=== PATIENT | female | born 1965 | race Caucasian/White ===

== ENCOUNTER 2019-02-12 13:23 | Emergency (ER) | payer SELFPAY ==
[~2019-02-12] VITALS: Ht 162.6 cm; Wt 55.8 kg
[2019-02-12 14:25] VITALS: BP 126/87
[2019-02-12] MEDS ORDERED: NAPROXEN 500 MG TABLET PO STA (14:47)
[2019-02-12] MEDS ORDERED: HYDROcodone/APAP 5/325MG 1 TAB TABLET PO ONE (15:00)
[2019-02-12] MEDS ORDERED: CYCLOBENZAPRINE 10 MG TABLET. PO ONE (15:00)
--- NOTE | 2019-02-12 15:42 | RAD ---
LUMBAR SPINE 2-3V History: Fall recently, low back pain, history of lumbar fracture Comparison: None. Findings: 3 views of the lumbar spine are submitted. There has been vertebroplasty at L4. Lumbar vertebral body stature at other levels is maintained. There is grade 1 anterior spondylolisthesis at L4-5. There is fairly advanced L4-5 and to a somewhat lesser degree L5-S1 degenerative disc disease. There is posterior interspinous fusion device L4-5, no previous exam to evaluate for change in position. There is inferior vena cava filter present. There is moderate levoscoliosis centered near L3. Impression: 1. There has been vertebroplasty at L4. 2. There is posterior interspinous fusion device L4-5, otherwise difficult to characterize position by this exam. 3. There is degenerative disc disease greatest L4-5 and L5-S1. 4. There is lumbar levoscoliosis. There is grade 1 anterior spondylolisthesis L4-5. Electronically signed by: Cristobal Goyal MD (02/12/2019 3:39 PM) [id number]
--- NOTE | 2019-02-12 17:30 | RAD ---
Exam: CT lumbar spine without contrast. Pelvis without contrast INDICATION: Fall, back pain TECHNIQUE: Sequential axial images through the lumbar spine and pelvis obtained without IV contrast. Sagittal and coronal reformatted images were reconstructed from the axial data and reviewed. Comparisons: Lumbar spine radiographs FINDINGS: Lumbar spine: Fusion device at the spinous processes of L4 on L5. There is vertebroplasty changes at L4. Grade 1/2 anterolisthesis of L4 on L5. Mild compression deformity of the L4 vertebral body with anterior wedging and less than 25 percent height loss. Fracture through the lumbar spine is not identified. Mild broad-based disc bulge, ligament flavum thickening facet arthropathy at L3-L4. Without significant neural foraminal stenosis. Moderate to severe spinal canal stenosis at L4-L5 secondary to anterolisthesis. There is moderate right and mild left-sided neural foraminal stenosis at this level. Visualized paraspinal soft tissues are unremarkable. Pelvis: Visualized intrapelvic structures are unremarkable. No acute fractures are identified. Sacral iliac joints, pubic symphysis and hip joints are well-maintained. Bone mineralization is normal. IMPRESSION: 1. Grade 2 anterolisthesis of L4 on L5 with associated at least moderate spinal canal stenosis at that level, favored to be chronic. No acute displaced fracture through the lumbar spine is identified. 2. No acute pelvic fracture identified. Exposure: One or more of the following in the visualized dose reduction techniques were utilized for this examination: 1. Automated exposure control 2. Adjustment of the MA and/or KV according to patient size 3. Use of iterative of reconstructive technique Electronically signed by: Vipul Garibay MD (02/12/2019 5:27 PM) [facility]
[2019-02-12] MEDS ORDERED: CYCL10TA2 PO (17:47)
[2019-02-12] MEDS ORDERED: HYDR-3164 PO (17:47)
--- NOTE | 2019-02-12 17:48 | PHYS DOC ---
Past Medical History Past Medical History: Bipolar, Depression Past Surgical History: Hysterectomy, Tonsillectomy Additional Past Surgical Histo: WISDOM TEETH, SPINAL FUSION, NASAL SEPTUM, PE, DVT, R WRIST SX, TIBIA PLAT Alcohol Use: None Drug Use: Marijuana Adult General Chief Complaint Chief Complaint: MECHANICAL FALL HPI HPI Patient is a 53 year old female with history of lumbar laminectomy who presents to the ED today complaining of moderate low back pain and bilateral hip pain that began this afternoon after falling, patient states she slipped on mud and fell landing on her buttocks. Patient denies any loss of consciousness, denies hitting her head on the ground. She describes the pain as sharp and constant worse on weight bearing. Denies any pain radiating to bilateral lower extremities. Denies any loss of bowel/bladder function. Review of Systems Review of Systems Constitutional: Denies fever or chills [] GI: Denies abdominal pain, nausea, vomiting, bloody stools or diarrhea [] : Denies dysuria or hematuria [] Musculoskeletal: Reports low back pain Integument: Denies rash or skin lesions [] Neurologic: Denies headache, focal weakness or sensory changes [] All other systems were reviewed and found to be within normal limits, except as documented in this note. Current Medications Current Medications Current Medications Medications (Trade) Dose Ordered Sig/Parish Start Time Stop Time Status Last Admin Dose Admin Acetaminophen/ Hydrocodone Bitart (Lortab 5/325) 2 tab 1X ONCE 02/12/19 15:00 02/12/19 15:01 DC 02/12/19 15:03 2 TAB Cyclobenzaprine HCl (Flexeril) 10 mg 1X ONCE 02/12/19 15:00 02/12/19 15:01 DC 02/12/19 15:03 10 MG Naproxen (Naprosyn) 500 mg 1X STAT 02/12/19 14:47 02/12/19 14:51 DC 02/12/19 15:04 500 MG Allergies Allergies Allergies Coded Allergies Type Severity Reaction Last Updated Verified Tetracyclines Allergy Intermediate 02/12/19 Yes clarithromycin Allergy Intermediate 02/12/19 Yes codeine Allergy Intermediate 02/12/19 Yes morphine Allergy Intermediate 02/12/19 Yes Physical Exam Physical Exam Constitutional: Well developed, well nourished, no acute distress, non-toxic appearance. [] Abdomen: Bowel sounds normal, soft, no tenderness, no masses, no pulsatile masses. [] Skin: Warm, dry, no erythema, no rash. [] Back: Moderate tenderness on palpation of the midline lumbar spine as well as paraspinal muscle tenderness to bilateral lumbar spine, no CVA tenderness. Extremities: Tenderness to bilateral hips, no cyanosis, no clubbing, ROM intact, no edema. [] Neurologic: Alert and oriented X 3, normal motor function, normal sensory function, no focal deficits noted. [] Psychologic: Affect normal, judgement normal, mood normal. [] Current Patient Data Vital Signs Vital Signs Date Time Temp Pulse Resp B/P (MAP) Pulse Ox O2 Delivery O2 Flow Rate FiO2 02/12/19 15:03 98 02/12/19 14:25 98.0 87 18 126/87 (100) Room Air 98.0 EKG EKG [] Radiology/Procedures Radiology/Procedures []PROCEDURE: CT LOWER EXTREMITY WO BILAT Exam: CT lumbar spine without contrast. Pelvis without contrast INDICATION: Fall, back pain TECHNIQUE: Sequential axial images through the lumbar spine and pelvis obtained without IV contrast. Sagittal and coronal reformatted images were reconstructed from the axial data and reviewed. Comparisons: Lumbar spine radiographs FINDINGS: Lumbar spine: Fusion device at the spinous processes of L4 on L5. There is vertebroplasty changes at L4. Grade 1/2 anterolisthesis of L4 on L5. Mild compression deformity of the L4 vertebral body with anterior wedging and less than 25 percent height loss. Fracture through the lumbar spine is not identified. Mild broad-based disc bulge, ligament flavum thickening facet arthropathy at L3-L4. Without significant neural foraminal stenosis. Moderate to severe spinal canal stenosis at L4-L5 secondary to anterolisthesis. There is moderate right and mild left-sided neural foraminal stenosis at this level. Visualized paraspinal soft tissues are unremarkable. Pelvis: Visualized intrapelvic structures are unremarkable. No acute fractures are identified. Sacral iliac joints, pubic symphysis and hip joints are well-maintained. Bone mineralization is normal. IMPRESSION: 1. Grade 2 anterolisthesis of L4 on L5 with associated at least moderate spinal canal stenosis at that level, favored to be chronic. No acute displaced fracture through the lumbar spine is identified. 2. No acute pelvic fracture identified. Exposure: One or more of the following in the visualized dose reduction techniques were utilized for this examination: 1. Automated exposure control 2. Adjustment of the MA and/or KV according to patient size 3. Use of iterative of reconstructive technique Electronically signed by: Vipul Yuen MD (02/12/2019 5:27 PM) [id number] DICTATED and SIGNED BY: VIPUL YUEN MD DATE: 02/12/19 1727 PROCEDURE: LUMBAR SPINE 2-3V LUMBAR SPINE 2-3V History: Fall recently, low back pain, history of lumbar fracture Comparison: None. Findings: 3 views of the lumbar spine are submitted. There has been vertebroplasty at L4. Lumbar vertebral body stature at other levels is maintained. There is grade 1 anterior spondylolisthesis at L4-5. There is fairly advanced L4-5 and to a somewhat lesser degree L5-S1 degenerative disc disease. There is posterior interspinous fusion device L4-5, no previous exam to evaluate for change in position. There is inferior vena cava filter present. There is moderate levoscoliosis centered near L3. Impression: 1. There has been vertebroplasty at L4. 2. There is posterior interspinous fusion device L4-5, otherwise difficult to characterize position by this exam. 3. There is degenerative disc disease greatest L4-5 and L5-S1. 4. There is lumbar levoscoliosis. There is grade 1 anterior spondylolisthesis L4-5. Electronically signed by: Branden Ramos MD (02/12/2019 3:39 PM) [id number] DICTATED and SIGNED BY: BRANDEN RAMOS MD DATE: 02/12/19 1539 Course & Med Decision Making Course & Med Decision Making Pertinent Labs and Imaging studies reviewed. (See chart for details) This is a 53-year-old female patient presenting to the ED today with bilateral hip pain and low back pain status post falling, CT and bilateral pelvis CT interpreted by radiologist are negative for any acute findings. Discharged home. Ice elevation follow-up with PCP in 1-2 weeks. Dragon Disclaimer Dragon Disclaimer This electronic medical record was generated, in whole or in part, using a voice recognition dictation system. Departure Departure Impression: Primary Impression: Fall from standing Additional Impressions: Lumbar contusion Contusion, hip Disposition: 01 HOME, SELF-CARE Condition: STABLE Referrals: ARYA MARTINEZ DO (PCP) follow up with your doctor in one week Patient Instructions: Contusion, [id number], Fall Prevention and Home Safety Additional Instructions: You were see in the emergency room for back pain as well as hip pain after falling. Your ct scan of the pelvis and CT of the lumbar spine are negative for any acute findings. Try to ice and elevate the affected areas. Take the prescribed pain medicine as needed for pain. Please follow-up with your own doctor in the course of next week. Scripts Cyclobenzaprine Hcl (CYCLOBENZAPRINE HCL) 10 Mg Tablet 1 TAB PO TID, #30 TAB Prov: WILL ANGUIANO APRN 02/12/19 Problem Qualifiers Primary Impression: Fall from standing Encounter type: initial encounter Qualified Codes: W19.XXXA - Unspecified fall, initial encounter Additional Impressions: Lumbar contusion Encounter type: initial encounter Qualified Codes: S30.0XXA - Contusion of lower back and pelvis, initial encounter Contusion, hip Encounter type: initial encounter Laterality: unspecified laterality Qualified Codes: S70.00XA - Contusion of unspecified hip, initial encounter WILL ANGUIANO APRN Feb 12, 2019 17:48
== END 2019-02-12 18:00 | disposition home or self-care (01) ==
LOC: ER 13:23
DX: S30.0XXA Contusion of lower back and pelvis, initial encounter (principal); S70.02XA Contusion of left hip, initial encounter; S70.01XA Contusion of right hip, initial encounter; F31.9 Bipolar disorder, unspecified; Z90.89 Acquired absence of other organs; Z90.710 Acquired absence of both cervix and uterus; Z88.1 Allergy status to other antibiotic agents; Z88.5 Allergy status to narcotic agent; W01.0XXA Fall on same level from slipping, tripping and stumbling without subsequent striking against object, initial encounter; Y93.89 Activity, other specified; Y92.89 Other specified places as the place of occurrence of the external cause; Y99.8 Other external cause status
CPT/HCPCS: 72100; 72131; 73700; 99284